=== PATIENT | male | born 1990 | race Two or more races ===

== ENCOUNTER 2023-03-29 11:09 | Day surgery (SDC) | payer MEDICAID, OTHER ==
[2023-03-24 09:10] LABS: Basophils # (auto) 0 10 ^3/uL (0-0.2); Basophils % (auto) 0.4 % (0.0-2.0); Eosinophils # (auto) 0.1 10 ^3/uL (0-0.8); Eosinophils % (auto) 2.2 % (0.0-7.0); Hematocrit 48.3 % (41.0-53.0); Lymphocytes # (auto) 1.6 10 ^3/uL (0.4-5.4); Lymphocytes % (auto) 26.6 % (10.0-50.0); Mean Corpuscular Hemoglobin 33.8 pg (28.0-32.0); Mean Corpuscular Hgb Conc. 35.3 g/dL (32.0-36.0); Mean Corpuscular Volume 95.6 fL (80.0-100.0); Monocytes # (auto) 0.6 10 ^3/uL (0-1.3); Monocytes % (auto) 9.7 % (0.0-12.0); Neutrophils # (auto) 3.6 10 ^3/uL (1.6-8.6); Neutrophils % (auto) 61.1 % (37.0-80.0); Red Blood Cells 5.05 10^6/uL (4.5-5.90); Red Cell Distribution Width 13.1 % (11.8-14.3); Urine Bacteria NONE SEEN /hpf (None Seen); Urine Blood Negative /uL (Negative); Urine Clarity Clear (Clear); Urine Color Yellow (Yellow); Urine Protein, UAD Negative (Negative); Urine Specific Gravity 1.016 (1.001-1.035); Urine Urobilinogen Normal (Negative); Urine WBC 1 /hpf (0 - 3); Urine pH 5.5 (5.0-8.0); White Blood Cell 5.9 10^3/uL (4.4-10.8)
[2023-03-24 09:25] LABS: INR 1.02 (0.9-1.15); Partial Thromboplastin Time 27.9 SEC (24.5-34.5); Prothrombin Time 10.7 sec (9.3-11.8)
[2023-03-24 10:17] LABS: Alanine Aminotransferase 48 U/L (7-40); Albumin 4.8 g/dL (3.2-4.8); Alkaline Phosphatase 111 U/L (46-116); Anion Gap 7 (5-15); Aspartate Aminotransferase 28 U/L (13-40); BUN/Creatinine Ratio 13.5 (10.0-20.0); Bilirubin, Total 0.8 mg/dL (0.2-1.0); Blood Urea Nitrogen 12 mg/dL (9-23); Calcium 9.6 mg/dL (8.5-10.1); Carbon Dioxide 31 mmol/L (20-30); Chloride 100 mmol/L (98-107); Glucose 170 mg/dL (74-106); Potassium 3.6 mmol/L (3.5-5.1); Sodium 138 mmol/L (136-145); Total Protein 7.2 g/dL (5.7-8.2)
[~2023-03-29] VITALS: Ht 180.3 cm; Wt 104.3 kg
[~2023-03-29 11:09] MED LIST: ATOR10TA PO; HYDR25TA4 PO; INSU1INJ19 SC; LISI20TA56 PO; METF-490 PO
[2023-03-29] MEDS ORDERED: SUCCINYLCHOLINE CHLORIDE 20 MG/ML 10ML VIAL IV ONE (11:10)
[2023-03-29] MEDS ORDERED: ceFAZolin 2 GM/D5W50ml 50 ML IV ONE (11:30)
[2023-03-29] MEDS ORDERED: LIDOCAINE 1% HCL (LOCAL ANESTH.) INJ 20ML MDV ONE (13:40)
[2023-03-29] MEDS ORDERED: fentaNYL CITRATE 100 MCG/2 ML VL ONE (14:01)
[2023-03-29] MEDS ORDERED: MEPERIDINE HCL (50 MG/ML) 1 ML VIAL ONE (14:01)
[2023-03-29] MEDS ORDERED: MIDAZOLAM HCL 2MG/2ML 2ml VIAL (1mg/ml) ONE (14:01)
[2023-03-29] MEDS ORDERED: ROCURONIUM 10MG/ML 10ML VIAL IV ONE (14:02)
[2023-03-29] MEDS ORDERED: ONDANSETRON HCL 4 MG/2 ML VIAL ONE (14:02)
[2023-03-29] MEDS ORDERED: SODIUM CHLORIDE LOCK 10 ML ONE (14:02)
[2023-03-29] MEDS ORDERED: PROPOFOL 10 MG/ML 20 ML IV ONE (14:02)
[2023-03-29] MEDS ORDERED: GLYCOPYRROLATE 0.2 MG/ML 1ML VIAL ONE (14:02)
[2023-03-29] MEDS ORDERED: NEOSTIGMINE 1 MG/ML INJ (10mg/10ML VIAL) ONE (14:02)
[2023-03-29] MEDS ORDERED: HYDROmorphone HCL 2 MG/ML VL/or syr IV PRN (14:15)
[2023-03-29] MEDS ORDERED: ACCU-CHEK COMFORT CURVE STRIP VI ONE (14:15)
[2023-03-29] MEDS ORDERED: KETAMINE 50mg/ML 1ml syringe ONE (15:21)
[2023-03-29] MEDS ORDERED: BUPIVACAINE 0.25% INJ 50ML VIAL ONE (15:25)
[2023-03-29] MEDS ORDERED: LIDOCAINE W/ EPINEPHRINE 1% 20ML VIAL ONE (15:25)
[2023-03-29] MEDS ORDERED: KETOROLAC TROMETH 30 MG/ML 1ML VIAL ONE (16:01)
[2023-03-29 16:14] VITALS: TEMP 96.7; O2SAT 95
[2023-03-29] MEDS: HYDROmorphone HCL 2 MG/ML VL/or syr IV PRN (16:34)
[2023-03-29] MEDS: MORPHINE SULFATE INJ 2 MG/ml SYRG IV PRN (17:19)
[2023-03-29] MEDS: METOCLOPRAMIDE HCL 5MG/ml INJ 2ml VIAL IV PRN (17:54)
[2023-03-29 17:59] VITALS: BP 148/89; PULSE 98; RESP 20; O2SAT 99
== END 2023-03-29 18:10 | disposition home or self-care (01) ==
LOC: SUR 11:09
PROVIDERS: ATTEND Surgery
DX: K42.0 Umbilical hernia with obstruction, without gangrene (principal); G89.29 Other chronic pain; E66.9 Obesity, unspecified; I10 Essential (primary) hypertension; E11.9 Type 2 diabetes mellitus without complications; E78.5 Hyperlipidemia, unspecified; Z79.84 Long term (current) use of oral hypoglycemic drugs; Z79.4 Long term (current) use of insulin; Z79.899 Other long term (current) drug therapy; Z98.890 Other specified postprocedural states; Z68.32 Body mass index [BMI] 32.0-32.9, adult
CPT/HCPCS: 36415; 49592; 80053; 81001; 85025; 85610; 85730; 86850; 86900; 86901; C1781; J0330; J0690; J1170; J1885; J2175; J2250; J2270; J2405; J2704; J2765; J3010; J3490; J2001